=== PATIENT | male | born 1965 ===

== ENCOUNTER 2018-09-11 12:50 | Emergency (ER) | payer MEDICAID, OTHER ==
[~2018-09-11] VITALS: Ht 172.7 cm; Wt 72.2 kg
[2018-09-11 12:59] VITALS: BP 112/71
--- NOTE | 2018-09-11 13:27 | NUR ---
PT TO ROOM FROM [facility]. PT REPORTS RIGHT ANKLE PAIN AFTER INJURY SEVERAL MONTHS AGO. AWAITING PROVIDER AND ORDERS AT THIS TIME.
[2018-09-11] MEDS ORDERED: KETOROLAC 30 MG/1 ML IM ONE (14:00)
[2018-09-11] MEDS ORDERED: COLCHICINE 0.6 MG TABLET PO ONE (14:00)
[2018-09-11] MEDS ORDERED: COLCHICINE 0.6 MG TABLET ONE (14:11)
[2018-09-11] MEDS ORDERED: KETOROLAC 30 MG/1 ML ONE (14:12)
--- NOTE | 2018-09-11 14:19 | NUR ---
[facility] EXPLAINED RESULTS AND POC TO PT. PT MEDICATED PER EMAR, TOLERATED WELL. PT GIVEN DC INSTRUCTIONS AND SCRIPT. PT EDUCATED REGARDING COLCHICINE AND INDOMETHACIN RX. PT AMB TO DC DESK WITH STEADY GAIT, NADN AT DC.
== END 2018-09-11 14:20 | disposition home or self-care (01) ==
LOC: ED 14:14
DX: S92.321A Displaced fracture of second metatarsal bone, right foot, initial encounter for closed fracture (principal); S92.331A Displaced fracture of third metatarsal bone, right foot, initial encounter for closed fracture; S92.341A Displaced fracture of fourth metatarsal bone, right foot, initial encounter for closed fracture; F17.210 Nicotine dependence, cigarettes, uncomplicated; M10.071 Idiopathic gout, right ankle and foot; X58.XXXA Exposure to other specified factors, initial encounter; Y93.89 Activity, other specified; Y92.410 Unspecified street and highway as the place of occurrence of the external cause; Y99.8 Other external cause status
CPT/HCPCS: 73630; 96372; 99283; J1885